=== PATIENT | female | born 1980 | race Caucasian/White ===

== ENCOUNTER 2019-09-28 21:30 | Emergency (ER) | payer OTHER, BC ==
[~2019-09-28] VITALS: Ht 162.6 cm; Wt 113.4 kg
[~2019-09-28 21:30] MED LIST: HYDACE5; LEVFLO500 PO; NAPR500 PO; POLY17UD PO; PSEU30; SULTRIDS
[2019-09-28] MEDS ORDERED: DOXY100 PO (22:26)
== END 2019-09-28 22:41 | disposition home or self-care (01) ==
LOC: ER 21:30
DX: N75.1 Abscess of Bartholin's gland (principal); N75.0 Cyst of Bartholin's gland; F17.210 Nicotine dependence, cigarettes, uncomplicated; Z88.8 Allergy status to other drugs, medicaments and biological substances
CPT/HCPCS: 56420; 99282-25

== ENCOUNTER 2019-12-20 18:52 | Emergency (ER) | payer OTHER, BC ==
[~2019-12-20] VITALS: Ht 162.6 cm; Wt 115.2 kg
[~2019-12-20 18:52] MED LIST changes: +DOXY100 PO
[2019-12-20 19:10] LABS: Source, Urine Clean Catch
[2019-12-20 19:15] LABS: Appearance, Urine Clear (Clear); Bilirubin, Urine Neg (Neg); Blood, Urine Neg (Neg); Color, Urine Yellow (P-Yellow); Glucose Qualitative, Urine Neg (Neg); Ketones, Urine Neg (Neg); Leukocyte Esterase, Urine Neg (Neg); Nitrite, Urine Neg (Neg); Protein, Urine Neg (Neg); Urobilinogen, Urine NORM (Normal)
[2019-12-20] MEDS ORDERED: Robaxin-750750 MG PO (21:20)
== END 2019-12-20 21:39 | disposition home or self-care (01) ==
LOC: ER 18:52
PROVIDERS: Physician Assistant
DX: M62.830 Muscle spasm of back (principal); Z88.8 Allergy status to other drugs, medicaments and biological substances; F17.210 Nicotine dependence, cigarettes, uncomplicated
CPT/HCPCS: 81003; 96372-59; 96374; 99283-25; J0515; J1885

== ENCOUNTER 2019-12-22 16:00 | Emergency (ER) | payer OTHER, BC ==
[~2019-12-22] VITALS: Ht 162.6 cm; Wt 117.9 kg
[~2019-12-22 16:00] MED LIST changes: +Robaxin-750750 MG PO
[2019-12-22 16:23] LABS: BASOPHILS ABSOLUTE AUTO 0.02 K/mm3 (0.00-0.23); BASOPHILS PERCENT AUTO 0 % (0-2); EOSINOPHILS ABSOLUTE AUTO 0.11 K/mm3 (0.00-0.68); EOSINOPHILS PERCENT AUTO 2 % (0-6); Hemoglobin 12.1 g/dL (11.5-16.0); IMMATURE GRAN ABSOLUTE AUTO 0.01 K/mm3 (0.00-0.10); IMMATURE GRAN PERCENT AUTO 0 % (0-1); LYMPHOCYTES ABSOLUTE AUTO 1.55 K/mm3 (0.84-5.20); LYMPHOCYTES PERCENT AUTO 29 % (21-46); MONOCYTES ABSOLUTE AUTO 0.52 K/mm3 (0.16-1.47); MONOCYTES PERCENT AUTO 10 % (4-13); Mean Corpuscular HGB 29.6 pg (26.0-34.0); Mean Corpuscular HGB Conc 32.7 g/dL (31.5-36.5); Mean Corpuscular Volume 91 fL (80-100); Mean Platelet Volume 10.9 fL (9.1-12.4); NEUTROPHILS ABSOLUTE AUTO 3.09 K/mm3 (1.96-9.15); NEUTROPHILS PERCENT AUTO 58 % (41-73); Platelet Count 212 K/mm3 (150-400); RDW Coefficient Variation 12.4 % (11.7-14.2); RDW Standard Deviation 40.9 fL (35.1-46.3); Red Blood Cell Count 4.09 M/mm3 (3.80-5.20)
[2019-12-22 16:36] LABS: Source, Urine Clean Catch
[2019-12-22 16:41] LABS: Appearance, Urine Clear (Clear); Bilirubin, Urine Neg (Neg); Blood, Urine Neg (Neg); Color, Urine Yellow (P-Yellow); Glucose Qualitative, Urine Neg (Neg); Ketones, Urine Neg (Neg); Leukocyte Esterase, Urine Neg (Neg); Nitrite, Urine Neg (Neg); Protein, Urine Neg (Neg); Urobilinogen, Urine NORM (Normal)
[2019-12-22 16:49] LABS: Alanine Aminotransfer (ALT/SGP 26 U/L (12-78); Albumin, Blood 3.7 g/dL (3.4-5.0); Alk Phos 57 U/L (50-136); Anion Gap 4 mmol/L (6-16); Aspartate Aminotrans (AST/SGOT 16 U/L (12-37); Bilirubin, Total 0.2 mg/dL (0.1-1.0); Blood Urea Nitrogen 14 mg/dL (8-24); Bun/Creatinine Ratio 15.2 (12.0-20.0); CO2, Blood 26 mmol/L (21-32); Chloride, Blood 110 mmol/L (98-108); Creatinine, Blood 0.92 mg/dL (0.40-1.00); Globulin, Blood 3.7 g/dL (2.2-4.0); Glomerular Filtration Rate >60 (60-); Glucose, Blood 91 mg/dL (70-99); Potassium, Blood 3.9 mmol/L (3.5-5.5); Sodium, Blood 140 mmol/L (136-145); Total Protein, Blood 7.4 g/dL (6.4-8.2)
[2019-12-22] MEDS ORDERED: IBUP800 PO (16:49)
[2019-12-22] MEDS ORDERED: CYCL10 PO (21:19)
[2019-12-22] MEDS ORDERED: KETO10 PO (21:19)
== END 2019-12-22 22:05 | disposition home or self-care (01) ==
LOC: ER 16:00
PROVIDERS: Physician Assistant
DX: M51.27 Other intervertebral disc displacement, lumbosacral region (principal); R20.2 Paresthesia of skin; F17.210 Nicotine dependence, cigarettes, uncomplicated; Z88.8 Allergy status to other drugs, medicaments and biological substances; Z79.899 Other long term (current) drug therapy
CPT/HCPCS: 72131; 72158; 72192; 80053; 81003; 81025; 83690; 85025; 96374-59; 96375-59; 99284-25; A9270; A9579; J1100; J1170; J1885; J2060; J2405

== ENCOUNTER 2023-02-11 10:30 | Day surgery (SDC) | payer OTHER ==
[~2023-02-11] VITALS: Ht 167.6 cm; Wt 119.6 kg
[~2023-02-11 10:30] MED LIST changes: +CYCL10 PO; +IBUP800 PO; +KETO10 PO
[2023-02-11 11:17] VITALS: BP 126/75
--- NOTE | 2023-02-11 14:28 | NUR ---
02/11/23 1428 Margie Fountain History, Chart, Medications and Allergies reviewed before start of procedure.MONITOR INTACT WITH CONTINUOUS PULSE OXIMETRY, CONTINUOUS END TITAL CO2, AND INTERMITTENT BLOOD PRESSURE.3-LEAD EKG REVIEWED WITH PHYSICIAN PRIOR TO START OF PROCEDURE.O2 VIA N/C INTACT THROUGHOUT SEDATION/PROCEDURE.SEE ANESTHESIA RECORD.
[2023-02-11 14:58] VITALS: BP 118/65
[2023-02-11 15:26] VITALS: BP 114/67
--- NOTE | 2023-02-11 15:40 | NUR ---
Discharge instructions reviewed with patient. Patient verbalizes understanding. Copy given to patient to take home. Patient States Post-Procedure ride home has been arranged. Declined WC for discharge.
== END 2023-02-11 15:40 | disposition home or self-care (01) ==
LOC: ORSCMMR 10:30 → ORD 12:00 → ORSCMMR 12:00
PROVIDERS: Surgery
PROC: 0DJD8ZZ Inspection of Lower Intestinal Tract, Via Natural or Artificial Opening Endoscopic (ICD-10-PCS; principal; 2023-02-11 12:00)
DX: Z12.11 Encounter for screening for malignant neoplasm of colon (principal); Z80.0 Family history of malignant neoplasm of digestive organs; Z87.891 Personal history of nicotine dependence; Z86.010 Personal history of colon polyps; E66.01 Morbid (severe) obesity due to excess calories; Z68.42 Body mass index [BMI] 45.0-49.9, adult
CPT/HCPCS: J2704; J7120